=== PATIENT | male | born 2000 | race Caucasian/White ===

== ENCOUNTER 2020-12-23 20:28 | Emergency (ER) | payer BC | END 2020-12-23 20:41 | disposition left against medical advice (07) | LOC: ERS 20:28 | DX: Z53.21 Procedure and treatment not carried out due to patient leaving prior to being seen by health care provider (principal) ==

== ENCOUNTER 2020-12-24 08:05 | Emergency (ER) | payer BC ==
[2020-12-24 18:35] LABS: SARS-CoV-2 PCR by NAA DETECTED (NotDetected)
== END 2020-12-24 09:10 | disposition home or self-care (01) ==
LOC: ERS 08:05
DX: U07.1 COVID-19 (principal)
CPT/HCPCS: 99283; U0003; U0005

== ENCOUNTER 2021-03-23 13:59 | Emergency (ER) | payer BC ==
[2021-03-23] MEDS ORDERED: HYDROcodone/Acetaminophen 10/325 mg Tablet ONE (15:49)
[2021-03-23] MEDS ORDERED: Ibuprofen 200 MG TAB ONE (15:50)
== END 2021-03-23 16:40 | disposition home or self-care (01) ==
LOC: ERS 13:59
DX: S62.306A Unspecified fracture of fifth metacarpal bone, right hand, initial encounter for closed fracture (principal); W50.0XXA Accidental hit or strike by another person, initial encounter
CPT/HCPCS: 29125